=== PATIENT | female | born 1950 | race Caucasian/White ===

== ENCOUNTER 2021-03-20 09:24 | Outpatient (CLI) | payer MEDICARE ==
[~2021-03-20 09:24] MED LIST: ACET650S12 PR; ASPI81TA45 PO; CEFD300C37 PO; DOCU-131 PO; DOXY-162 PO; FAMO-79 PO; IBUP-1223 PO; NICO-485 TD; ONDA4TAB10 PO; OXYC1TAB14 PO; OXYC5TAB98 PO; PRED20TA PO; TIZA2CAP PO; TIZA2CAP2 PO; [UNRECOGNIZED DRUG - CODE] PO
== END 2021-03-20 23:59 | disposition home or self-care (01) ==
LOC: CFH 09:24
PROVIDERS: ATTEND Physician Assistant
DX: Z12.31 Encounter for screening mammogram for malignant neoplasm of breast (principal); N95.9 Unspecified menopausal and perimenopausal disorder; R33.9 Retention of urine, unspecified; I77.811 Abdominal aortic ectasia; M85.80 Other specified disorders of bone density and structure, unspecified site
CPT/HCPCS: 76770; 77063; 77067; 77080